=== PATIENT | female | born 1955 | race Caucasian/White ===

== ENCOUNTER 2017-01-07 10:17 | Inpatient (IN) | payer OTHER ==
[~2017-01-07] VITALS: Ht 156.2 cm; Wt 73.1 kg
[~2017-01-07 10:17] MED LIST: ALBU90AE INH; ATOR40TA78 PO; CHLO25TA PO; FLUT12AE2 INH; IPRA3AMP INH; LISI30TA4 PO; METF750T PO
[2017-01-07] MEDS ORDERED: SODIUM CHLORIDE 0.9% 1,000ML IVBOLUS ONE (11:00)
[2017-01-07] MEDS ORDERED: SODIUM CHLORIDE FLUSH 10ML SYR IVF ONE (11:00)
[2017-01-07] MEDS ORDERED: ONDANSETRON 2MG/ML, 2ML IVPush ONE (11:00)
[2017-01-07] MEDS ORDERED: ONDANSETRON 2MG/ML, 2ML ONE (11:11)
[2017-01-07] MEDS ORDERED: MORPHINE SULFATE 4 MG/ML, 1ML ONE ×2 (11:11→13:08)
[2017-01-07] MEDS: MORPHINE SULFATE 4 MG/ML, 1ML IVPush PRN ×2 (11:14→13:12)
[2017-01-07 11:29] LABS: BLOOD UREA NITROGEN 21 mg/dL (7-18)
[2017-01-07 11:33] LABS: ASPARTATE AMINO TRANSFERASE 14 U/L (15-37)
[2017-01-07 11:59] LABS: HEMATOCRIT 42.6 % (34.6-47.8); HEMOGLOBIN 14.2 g/dL (11.7-16.4); WHITE BLOOD COUNT 19.7 x10^3/uL (3.4-10)
[2017-01-07] MEDS ORDERED: SODIUM CHLORIDE 0.9% 1,000 ML IV ONE (12:42)
[2017-01-07] MEDS ORDERED: CEFTRIAXONE PMX 1GM/50ML 50 ML ONE (12:58)
[2017-01-07] MEDS ORDERED: METRONIDAZOLE PMX 500MG/100ML 100 ML IVPB ONE (13:00)
[2017-01-07] MEDS ORDERED: CEFTRIAXONE PMX 1GM/50ML 50 ML IVPB ONE (13:00)
[2017-01-07] MEDS: SODIUM CHLORIDE 0.9% 1,000 ML IV SCH ×2 (13:56→15:56)
[2017-01-07] MEDS ORDERED: POLYETHYLENE GLYCOL 17 GM PACKET PO PRN (14:00)
[2017-01-07] MEDS ORDERED: BISACODYL 10 MG SUPP PR PRN (14:00)
[2017-01-07] MEDS ORDERED: DOCUSATE 100 MG CAPSULE PO PRN (14:00)
[2017-01-07] MEDS ORDERED: ONDANSETRON 2MG/ML, 2ML IVPush PRN (14:00)
[2017-01-07] MEDS ORDERED: morphine SULFATE 10 MG/ML, 1ML IVPush PRN (14:00)
[2017-01-07] MEDS ORDERED: ONDANSETRON ODT 4 MG PO PRN (14:00)
[2017-01-07] MEDS ORDERED: FLUCONAZOLE 100 MG TABLET PO ONE (14:00)
[2017-01-07] MEDS ORDERED: hydrALAzine 20 MG/ML, 1ML IV PRN (14:00)
[2017-01-07] MEDS ORDERED: PHARMACY MAY ADJ FOR RENAL FX MC PRN (14:30)
[2017-01-07 14:32] VITALS: BP 121/87
[2017-01-07] MEDS: NICOTINE 14MG/24 HR PATCH.TD24 TD SCH (15:00)
[2017-01-07] MEDS ORDERED: ALBUTEROL/IPRATROPIUM 2.5MG/0.5MG, 3 ML ONE (15:10)
[2017-01-07] MEDS: HEPARIN 5,000 UNITS/ML, 1ML SQ SCH ×2 (15:57→23:40)
[2017-01-07] MEDS: LACTOBACILLUS CHEW TABLET PO SCH ×2 (15:58→21:41)
[2017-01-07] MEDS: INSULIN ASPART 100 UNITS/ML, PEN SQ-INSULIN SCH ×2 (16:00→21:00)
[2017-01-07] MEDS: METRONIDAZOLE PMX 500MG/100ML 100 ML IV SCH ×2 (16:28→22:34)
[2017-01-07] MEDS ORDERED: MAGNESIUM SULFATE PMX 2GM/50ML 50 ML IV ONE (18:30)
[2017-01-07] MEDS: HYDROcodone/APAP 5/325 TABLET PO PRN (19:36)
[2017-01-07 20:00] VITALS: BP 118/68
[2017-01-07] MEDS: ALBUTEROL/IPRATROPIUM 2.5MG/0.5MG, 3 ML NPPB SCH (20:00)
[2017-01-07] MEDS ORDERED: TEMPLATE NON-FORMULARY MED. (Fluticasone Propionate (Flovent Hfa 220 Mcg/Inh) 1 PUFF) INH SCH (21:00)
[2017-01-07] MEDS: FAMOTIDINE 20 MG/2 ML IVPush SCH (21:41)
[2017-01-07] MEDS: ATORVASTATIN 40 MG TABLET PO SCH (21:41)
[2017-01-08 02:00] VITALS: BP 121/73
[2017-01-08] MEDS: SODIUM CHLORIDE 0.9% 1,000 ML IV SCH ×2 (03:16→14:27)
[2017-01-08] MEDS: HYDROcodone/APAP 5/325 TABLET PO PRN ×2 (03:24→14:27)
[2017-01-08] MEDS: ALBUTEROL/IPRATROPIUM 2.5MG/0.5MG, 3 ML NPPB SCH ×3 (03:33→12:10)
[2017-01-08 05:26] LABS: PATH.CAST-FLAG NOT PRESENT; SPERM-FLAG NOT PRESENT; SRC-FLAG NOT PRESENT; XTAL-FLAG NOT PRESENT; YLC-FLAG NOT PRESENT
[2017-01-08 06:18] LABS: HEMATOCRIT 30.8 % (34.6-47.8); HEMOGLOBIN 10.1 g/dL (11.7-16.4); WHITE BLOOD COUNT 8.8 x10^3/uL (3.4-10)
[2017-01-08 06:29] LABS: BLOOD UREA NITROGEN 15 mg/dL (7-18)
[2017-01-08] MEDS: LACTOBACILLUS CHEW TABLET PO SCH ×4 (06:33→21:30)
[2017-01-08] MEDS: METRONIDAZOLE PMX 500MG/100ML 100 ML IV SCH ×3 (06:33→21:30)
[2017-01-08] MEDS: HEPARIN 5,000 UNITS/ML, 1ML SQ SCH ×3 (06:34→23:00)
[2017-01-08] MEDS: INSULIN ASPART 100 UNITS/ML, PEN SQ-INSULIN SCH ×4 (08:19→21:49)
[2017-01-08] MEDS: FAMOTIDINE 20 MG/2 ML IVPush SCH ×2 (08:19→21:31)
[2017-01-08] MEDS: LISINOPRIL 10 MG TABLET PO SCH (08:19)
[2017-01-08] MEDS ORDERED: FLUTICASONE FUROATE 200MCG/INH INH SCH (09:00)
[2017-01-08] MEDS ORDERED: CHLORTHALIDONE 25 MG TABLET PO SCH (09:00)
[2017-01-08 09:41] VITALS: BP 114/67
[2017-01-08] MEDS ORDERED: TEMPLATE NON-FORMULARY MED. (albuterol sulfate 1 PUFF) HOMEINH PRN (12:00)
[2017-01-08 14:00] VITALS: BP 120/73
[2017-01-08] MEDS: CEFTRIAXONE PMX 1GM/50ML 50 ML IV SCH (14:27)
[2017-01-08] MEDS ORDERED: ALBUTEROL/IPRATROPIUM 2.5MG/0.5MG, 3 ML NPPB PRN (15:00)
[2017-01-08] MEDS: NICOTINE 14MG/24 HR PATCH.TD24 TD SCH (15:00)
[2017-01-08] MEDS: DOCUSATE 100 MG CAPSULE PO SCH ×2 (15:24→21:30)
[2017-01-08 19:34] VITALS: BP 138/76
[2017-01-08] MEDS: ATORVASTATIN 40 MG TABLET PO SCH (21:30)
[2017-01-08] MEDS: [UNRECOGNIZED DRUG - OTHER] HOMEINH SCH (21:31)
[2017-01-09 01:33] VITALS: BP 134/80
[2017-01-09 05:13] LABS: HEMATOCRIT 31.8 % (34.6-47.8); HEMOGLOBIN 10.7 g/dL (11.7-16.4); WHITE BLOOD COUNT 9.2 x10^3/uL (3.4-10)
[2017-01-09 05:39] LABS: BLOOD UREA NITROGEN 10 mg/dL (7-18)
[2017-01-09] MEDS: SODIUM CHLORIDE 0.9% 1,000 ML IV SCH (06:13)
[2017-01-09] MEDS: METRONIDAZOLE PMX 500MG/100ML 100 ML IV SCH ×2 (06:13→14:00)
[2017-01-09] MEDS: LACTOBACILLUS CHEW TABLET PO SCH ×2 (06:13→09:55)
[2017-01-09] MEDS: HEPARIN 5,000 UNITS/ML, 1ML SQ SCH (06:13)
[2017-01-09] MEDS: HYDROcodone/APAP 5/325 TABLET PO PRN (06:24)
[2017-01-09] MEDS: INSULIN ASPART 100 UNITS/ML, PEN SQ-INSULIN SCH ×2 (07:00→12:01)
[2017-01-09 07:19] VITALS: BP 138/85
[2017-01-09] MEDS: [UNRECOGNIZED DRUG - OTHER] HOMEINH SCH (09:00)
[2017-01-09] MEDS: DOCUSATE 100 MG CAPSULE PO SCH (09:00)
[2017-01-09] MEDS: LISINOPRIL 10 MG TABLET PO SCH (09:55)
[2017-01-09] MEDS: FAMOTIDINE 20 MG/2 ML IVPush SCH (09:55)
[2017-01-09] MEDS ORDERED: LEVO500T47 PO (10:02)
[2017-01-09] MEDS ORDERED: ACID1TAB7 PO (10:02)
[2017-01-09] MEDS ORDERED: METR500T PO (10:02)
[2017-01-09] MEDS ORDERED: FLU VACC QS2017-18 (36MOS+) UP/PF 0.5 ML IM-VACC ONE (12:30)
[2017-01-09] MEDS: CEFTRIAXONE PMX 1GM/50ML 50 ML IV SCH (13:00)
[2017-01-09 13:57] VITALS: BP 134/81
== END 2017-01-09 15:00 | disposition home health service (06) | DRG 871 ==
LOC: ED 12:45 → EDIP 12:46 → ED 13:14 → 4EST 14:43 → DCLOUNGE 01-09 14:28
PROVIDERS: ADMIT Hospitalist; ATTEND Hospitalist
PROC: 0T9B70Z Drainage of Bladder with Drainage Device, Via Natural or Artificial Opening (ICD-10-PCS; principal; 2017-01-07)
DX: A41.9 Sepsis, unspecified organism (principal); N17.0 Acute kidney failure with tubular necrosis; E83.42 Hypomagnesemia; E87.1 Hypo-osmolality and hyponatremia; K57.32 Diverticulitis of large intestine without perforation or abscess without bleeding; B37.3 Candidiasis of vulva and vagina; D75.89 Other specified diseases of blood and blood-forming organs; E11.9 Type 2 diabetes mellitus without complications; E78.5 Hyperlipidemia, unspecified; G47.33 Obstructive sleep apnea (adult) (pediatric); I10 Essential (primary) hypertension; J44.9 Chronic obstructive pulmonary disease, unspecified; G43.909 Migraine, unspecified, not intractable, without status migrainosus; K59.00 Constipation, unspecified; F17.200 Nicotine dependence, unspecified, uncomplicated; Z71.6 Tobacco abuse counseling; Z80.9 Family history of malignant neoplasm, unspecified
CPT/HCPCS: 36415; 74177; 80048; 80053; 81001; 81003; 82962; 83605; 83690; 83735; 84100; 85025; 87046; 87086; 87324; 94640; 96361; 96374; 96375; 96376; J0696; J1644; J1815; J2405; J7620; Q0162; J3475; J7030; S0028

== ENCOUNTER 2017-01-16 21:07 | Inpatient (IN) | payer OTHER ==
[~2017-01-16] VITALS: Ht 154.9 cm; Wt 74.0 kg
[~2017-01-16 21:07] MED LIST changes: +ACID1TAB7 PO; +LEVO500T47 PO; +METR500T PO
[2017-01-16] MEDS ORDERED: methylPREDNISolone SOD SUCC 125 MG/2 ML ONE (21:49)
[2017-01-16] MEDS ORDERED: ONDANSETRON 2MG/ML, 2ML ONE (21:49)
[2017-01-16 21:55] LABS: HEMATOCRIT 40.4 % (34.6-47.8); HEMOGLOBIN 13.4 g/dL (11.7-16.4); WHITE BLOOD COUNT 7.4 x10^3/uL (3.4-10)
[2017-01-16] MEDS ORDERED: ALBUTEROL/IPRATROPIUM 2.5MG/0.5MG, 3 ML NPPB ONE (22:00)
[2017-01-16] MEDS ORDERED: SODIUM CHLORIDE 0.9% 1,000ML IVBOLUS ONE (22:00)
[2017-01-16] MEDS ORDERED: SODIUM CHLORIDE FLUSH 10ML SYR IVF ONE (22:00)
[2017-01-16] MEDS ORDERED: methylPREDNISolone SOD SUCC 125 MG/2 ML IVP ONE (22:00)
[2017-01-16] MEDS ORDERED: ONDANSETRON 2MG/ML, 2ML IVP ONE (22:00)
[2017-01-16 22:06] LABS: ASPARTATE AMINO TRANSFERASE 20 U/L (15-37); BLOOD UREA NITROGEN 19 mg/dL (7-18)
[2017-01-16 22:11] LABS: IS PT STATUS REG ER OR PRE ER? YES
[2017-01-16 22:42] LABS: PATH.CAST-FLAG NOT PRESENT; SPERM-FLAG NOT PRESENT; SRC-FLAG NOT PRESENT; XTAL-FLAG NOT PRESENT; YLC-FLAG NOT PRESENT
[2017-01-17] MEDS ORDERED: MAGNESIUM SULFATE PMX 2GM/50ML 50 ML IV ONE
[2017-01-17] MEDS: NICOTINE 14MG/24 HR PATCH.TD24 TD SCH
[2017-01-17 00:26] VITALS: BP 124/72
[2017-01-17] MEDS: NS + 20MEQ KCL 1,000 ML IV SCH ×3 (00:41→16:51)
[2017-01-17] MEDS: methylPREDNISolone SOD SUCC 125 MG/2 ML IVPush SCH ×2 (00:41→05:41)
[2017-01-17] MEDS: HEPARIN 5,000 UNITS/ML, 1ML SQ SCH ×3 (00:42→16:51)
[2017-01-17 06:00] LABS: HEMATOCRIT 36.5 % (34.6-47.8); HEMOGLOBIN 12.3 g/dL (11.7-16.4); WHITE BLOOD COUNT 4.4 x10^3/uL (3.4-10)
[2017-01-17 06:07] LABS: ASPARTATE AMINO TRANSFERASE 16 U/L (15-37); BLOOD UREA NITROGEN 17 mg/dL (7-18)
[2017-01-17 06:42] VITALS: BP 107/61
[2017-01-17] MEDS: ALBUTEROL/IPRATROPIUM 2.5MG/0.5MG, 3 ML NPPB SCH ×4 (06:51→20:25)
[2017-01-17] MEDS: metFORMIN 500 MG TABLET PO SCH ×4 (08:55→18:07)
[2017-01-17] MEDS: SENNA/DOCUSATE TABLET PO SCH (08:55)
[2017-01-17] MEDS: LISINOPRIL 10 MG TABLET PO SCH (09:00)
[2017-01-17] MEDS ORDERED: FLUTICASONE FUROATE 100MCG/INH INH SCH (09:00)
[2017-01-17] MEDS: FLUTICASONE FUROATE 200MCG/INH INH SCH (09:00)
[2017-01-17] MEDS: INSULIN ASPART 100 UNITS/ML, PEN SQ-INSULIN SCH ×5 (09:02→20:12)
[2017-01-17] MEDS: methylPREDNISolone SOD SUCC 40 MG/ML IVPush SCH ×2 (14:29→21:44)
[2017-01-17 14:38] VITALS: BP 120/71
[2017-01-17] MEDS ORDERED: ONDANSETRON 2MG/ML, 2ML IVPush PRN ×2 (16:00)
[2017-01-17] MEDS ORDERED: ACETAMINOPHEN 325 MG TABLET PO PRN ×2 (16:00)
[2017-01-17] MEDS ORDERED: POLYETHYLENE GLYCOL 17 GM PACKET PO PRN ×2 (16:00)
[2017-01-17] MEDS ORDERED: GUAIFENESIN/DM 200-20MG, 10ML UDC PO PRN ×2 (16:00)
[2017-01-17] MEDS ORDERED: BISACODYL 10 MG SUPP PR PRN ×2 (16:00)
[2017-01-17 19:17] VITALS: BP 132/76
[2017-01-17] MEDS: ATORVASTATIN 40 MG TABLET PO SCH ×2 (20:11)
[2017-01-18] MEDS: NICOTINE 14MG/24 HR PATCH.TD24 TD SCH
[2017-01-18 00:41] VITALS: BP 162/81
[2017-01-18] MEDS: HEPARIN 5,000 UNITS/ML, 1ML SQ SCH ×3 (00:46→16:00)
[2017-01-18] MEDS: NS + 20MEQ KCL 1,000 ML IV SCH ×3 (00:46→16:00)
[2017-01-18] MEDS: methylPREDNISolone SOD SUCC 40 MG/ML IVPush SCH ×2 (05:41→14:16)
[2017-01-18 05:54] LABS: HEMATOCRIT 35.1 % (34.6-47.8); HEMOGLOBIN 11.6 g/dL (11.7-16.4); WHITE BLOOD COUNT 14.6 x10^3/uL (3.4-10)
[2017-01-18 06:11] LABS: BLOOD UREA NITROGEN 21 mg/dL (7-18)
[2017-01-18 06:48] VITALS: BP 132/76
[2017-01-18] MEDS: ALBUTEROL/IPRATROPIUM 2.5MG/0.5MG, 3 ML NPPB SCH ×3 (06:52→14:51)
[2017-01-18] MEDS: SENNA/DOCUSATE TABLET PO SCH (08:27)
[2017-01-18] MEDS: FLUTICASONE FUROATE 200MCG/INH INH SCH (08:33)
[2017-01-18] MEDS: metFORMIN 500 MG TABLET PO SCH (08:40)
[2017-01-18] MEDS: LISINOPRIL 10 MG TABLET PO SCH (08:41)
[2017-01-18] MEDS: INSULIN ASPART 100 UNITS/ML, PEN SQ-INSULIN SCH ×2 (08:42→12:21)
[2017-01-18 15:15] VITALS: BP 128/69
== END 2017-01-18 17:13 | disposition home or self-care (01) | DRG 189 ==
LOC: ED 21:45 → EDIP 23:00 → 4WST 23:55
PROVIDERS: ADMIT Hospitalist; ATTEND Hospitalist
DX: J96.01 Acute respiratory failure with hypoxia (principal); E11.65 Type 2 diabetes mellitus with hyperglycemia; E86.0 Dehydration; E44.1 Mild protein-calorie malnutrition; E87.1 Hypo-osmolality and hyponatremia; J44.1 Chronic obstructive pulmonary disease with (acute) exacerbation; J98.11 Atelectasis; E78.5 Hyperlipidemia, unspecified; E87.6 Hypokalemia; F17.210 Nicotine dependence, cigarettes, uncomplicated; F41.9 Anxiety disorder, unspecified; I10 Essential (primary) hypertension; Z80.9 Family history of malignant neoplasm, unspecified; Z68.30 Body mass index [BMI] 30.0-30.9, adult
CPT/HCPCS: 36415; 71010; 80048; 80053; 81001; 82962; 83880; 84484; 85025; 87040; 87070; 87086; 87107; 87205; 93005; 94640; 96361; 96374; 96375; J1644; J2405; J3480; J7620; J2920; J2930; J3475; J7030

== ENCOUNTER 2017-01-25 20:53 | Inpatient (IN) | payer OTHER ==
[~2017-01-25] VITALS: Ht 154.9 cm; Wt 70.0 kg
[~2017-01-25 20:53] MED LIST changes: +ADENOSINE 6 MG/2 ML ONE; +PRED5TAB25 PO
[2017-01-25] MEDS ORDERED: ADENOSINE 6 MG/2 ML ONE (21:03)
[2017-01-25] MEDS ORDERED: methylPREDNISolone SOD SUCC 125 MG/2 ML ONE (21:07)
[2017-01-25] MEDS ORDERED: ONDANSETRON 2MG/ML, 2ML ONE (21:12)
[2017-01-25] MEDS ORDERED: methylPREDNISolone SOD SUCC 125 MG/2 ML IVP ONE (21:30)
[2017-01-25] MEDS ORDERED: ADENOSINE 6 MG/2 ML IVPush ONE ×3 (21:30)
[2017-01-25] MEDS ORDERED: DILTIAZEM 5 MG/ML, 5ML IVPush ONE (21:30)
[2017-01-25] MEDS ORDERED: SODIUM CHLORIDE 0.9% 1,000ML IVBOLUS ONE (21:30)
[2017-01-25] MEDS ORDERED: ONDANSETRON 2MG/ML, 2ML IVPush ONE (21:30)
[2017-01-25] MEDS ORDERED: ALBUTEROL/IPRATROPIUM 2.5MG/0.5MG, 3 ML ONE (21:31)
[2017-01-25 21:38] LABS: BLOOD UREA NITROGEN 27 mg/dL (7-18)
[2017-01-25] MEDS ORDERED: morphine SULFATE 10 MG/ML, 1ML ONE (21:38)
[2017-01-25 21:43] LABS: IS PT STATUS REG ER OR PRE ER? YES
[2017-01-25] MEDS ORDERED: DILTIAZEM 125 MG in SODIUM CHLORIDE 0.9% 100 ML IV PRN (22:00)
[2017-01-25 22:04] LABS: HEMATOCRIT 37.9 % (34.6-47.8); HEMOGLOBIN 12.3 g/dL (11.7-16.4); WHITE BLOOD COUNT 23.3 x10^3/uL (3.4-10)
[2017-01-25 22:05] LABS: DIFF TOTAL CELLS COUNTED 100 CELL DIFF
[2017-01-25 22:09] LABS: VERIFY COUNTS? YES
[2017-01-25] MEDS ORDERED: PRED5TAB PO (22:13)
[2017-01-25] MEDS ORDERED: ASPIRIN 325 MG TABLET PO STA (22:32)
[2017-01-25] MEDS ORDERED: SODIUM CHLORIDE 0.9% 1,000 ML IV ONE (22:43)
[2017-01-25] MEDS ORDERED: MORPHINE SULFATE 4 MG/ML, 1ML IVPush PRN (23:00)
[2017-01-25] MEDS ORDERED: ONDANSETRON 2MG/ML, 2ML IVPush PRN ×2 (23:00→23:30)
[2017-01-25] MEDS ORDERED: AZITHROMYCIN 500 MG in SODIUM CHLORIDE 0.9% 250 ML IV ONE (23:00)
[2017-01-25] MEDS ORDERED: ASPIRIN 325 MG TABLET ONE (23:13)
[2017-01-25] MEDS: AZITHROMYCIN 500 MG in SODIUM CHLORIDE 0.9% 250 ML IV SCH (23:20)
[2017-01-25] MEDS: LACTOBACILLUS CHEW TABLET PO SCH (23:30)
[2017-01-25] MEDS ORDERED: BISACODYL 10 MG SUPP PR PRN (23:30)
[2017-01-25] MEDS: metFORMIN 500 MG TABLET PO SCH (23:30)
[2017-01-25] MEDS ORDERED: ACETAMINOPHEN 325 MG TABLET PO PRN (23:30)
[2017-01-25] MEDS ORDERED: POLYETHYLENE GLYCOL 17 GM PACKET PO PRN (23:30)
[2017-01-25] MEDS ORDERED: MAGNESIUM SULFATE PMX 4GM/100M 100 ML IV ONE (23:30)
[2017-01-25 23:48] VITALS: BP 124/81
[2017-01-26] MEDS ORDERED: CEFTRIAXONE PMX 1GM/50ML 50 ML IV SCH
[2017-01-26] MEDS ORDERED: morphine SULFATE 10 MG/ML, 1ML ONE (00:04)
[2017-01-26] MEDS ORDERED: OMNIPAQUE 350 MG/ML, 100ML BOTTLE ONE (00:57)
[2017-01-26] MEDS: ATORVASTATIN 40 MG TABLET PO SCH ×2 (01:04→20:32)
[2017-01-26] MEDS: HEPARIN 5,000 UNITS/ML, 1ML SQ SCH ×3 (01:06→17:11)
[2017-01-26] MEDS: CEFTRIAXONE 1,000 MG in SODIUM CHLORIDE 0.9% 50 ML IVPB SCH (01:51)
[2017-01-26 02:03] VITALS: BP 103/70
[2017-01-26] MEDS: methylPREDNISolone SOD SUCC 125 MG/2 ML IVPush SCH ×4 (03:00→20:33)
[2017-01-26 03:26] LABS: HEMATOCRIT 34.6 % (34.6-47.8); HEMOGLOBIN 11.4 g/dL (11.7-16.4); WHITE BLOOD COUNT 22.6 x10^3/uL (3.4-10)
[2017-01-26 03:39] LABS: ASPARTATE AMINO TRANSFERASE 76 U/L (15-37); BLOOD UREA NITROGEN 26 mg/dL (7-18)
[2017-01-26 03:44] LABS: IS PT STATUS REG ER OR PRE ER? NO
[2017-01-26 03:49] LABS: DIFF TOTAL CELLS COUNTED 100 CELL DIFF
[2017-01-26 03:51] LABS: VERIFY COUNTS? YES
[2017-01-26] MEDS: ASPIRIN 325 MG TABLET EC PO SCH (05:12)
[2017-01-26] MEDS: LACTOBACILLUS CHEW TABLET PO SCH ×4 (05:18→20:32)
[2017-01-26] MEDS: SENNA/DOCUSATE TABLET PO SCH (09:00)
[2017-01-26] MEDS: metFORMIN 500 MG TABLET PO SCH ×2 (09:17→20:33)
[2017-01-26] MEDS: LISINOPRIL 10 MG TABLET PO SCH (09:18)
[2017-01-26] MEDS: CHLORTHALIDONE 25 MG TABLET PO SCH (09:18)
[2017-01-26] MEDS: FLUTICASONE FUROATE 200MCG/INH INH SCH (09:20)
[2017-01-26 09:23] VITALS: BP 127/77
[2017-01-26 09:26] LABS: IS PT STATUS REG ER OR PRE ER? NO
[2017-01-26] MEDS: ALBUTEROL/IPRATROPIUM 2.5MG/0.5MG, 3 ML NPPB PRN ×2 (14:40→19:25)
[2017-01-26 14:41] VITALS: BP 127/78
[2017-01-26] MEDS: INSULIN ASPART 100 UNITS/ML, PEN SQ-INSULIN SCH ×2 (17:13→20:31)
[2017-01-26 19:01] VITALS: BP 118/74
[2017-01-26 20:27] VITALS: BP 135/91
[2017-01-26] MEDS: AZITHROMYCIN 500 MG in SODIUM CHLORIDE 0.9% 250 ML IV SCH (23:58)
[2017-01-27] MEDS: HEPARIN 5,000 UNITS/ML, 1ML SQ SCH ×3 (01:20→17:24)
[2017-01-27] MEDS: CEFTRIAXONE 1,000 MG in SODIUM CHLORIDE 0.9% 50 ML IVPB SCH (01:20)
[2017-01-27 01:28] VITALS: BP 120/78
[2017-01-27] MEDS: methylPREDNISolone SOD SUCC 125 MG/2 ML IVPush SCH ×2 (03:14→10:06)
[2017-01-27 05:05] LABS: HEMATOCRIT 35.5 % (34.6-47.8); WHITE BLOOD COUNT 22.5 x10^3/uL (3.4-10)
[2017-01-27 05:26] LABS: BLOOD UREA NITROGEN 26 mg/dL (7-18)
[2017-01-27] MEDS: ASPIRIN 325 MG TABLET EC PO SCH (05:27)
[2017-01-27] MEDS: LACTOBACILLUS CHEW TABLET PO SCH ×4 (05:27→21:29)
[2017-01-27] MEDS: ALBUTEROL/IPRATROPIUM 2.5MG/0.5MG, 3 ML NPPB PRN (07:30)
[2017-01-27] MEDS ORDERED: REGADENOSON 0.4 MG/5 ML SYRINGE ONE (08:37)
[2017-01-27] MEDS: SENNA/DOCUSATE TABLET PO SCH (09:00)
[2017-01-27] MEDS: FLUTICASONE FUROATE 200MCG/INH INH SCH (09:00)
[2017-01-27 09:41] VITALS: BP 119/74
[2017-01-27] MEDS: CHLORTHALIDONE 25 MG TABLET PO SCH (10:05)
[2017-01-27] MEDS: metFORMIN 500 MG TABLET PO SCH ×2 (10:05→21:29)
[2017-01-27] MEDS: LISINOPRIL 10 MG TABLET PO SCH (10:05)
[2017-01-27] MEDS: INSULIN ASPART 100 UNITS/ML, PEN SQ-INSULIN SCH ×4 (10:06→21:31)
[2017-01-27 13:28] VITALS: BP 120/73
[2017-01-27] MEDS ORDERED: DOXYCYCLINE 100 MG in DEXTROSE 5% 250 ML IV SCH (13:30)
[2017-01-27] MEDS: DOXYCYCLINE 100MG TABLET PO SCH (13:51)
[2017-01-27 17:22] VITALS: BP 131/76
[2017-01-27] MEDS: METOPROLOL TARTRATE 25 MG TABLET PO SCH (17:23)
[2017-01-27 19:24] VITALS: BP 131/76
[2017-01-27] MEDS: ATORVASTATIN 40 MG TABLET PO SCH (21:30)
[2017-01-27] MEDS: CEFTRIAXONE 1,000 MG in DEXTROSE 5% 50 ML IVPB SCH (23:28)
[2017-01-28] MEDS: DOXYCYCLINE 100MG TABLET PO SCH ×2 (02:06→14:19)
[2017-01-28] MEDS: HEPARIN 5,000 UNITS/ML, 1ML SQ SCH ×3 (02:07→17:54)
[2017-01-28 03:44] VITALS: BP 158/88
[2017-01-28] MEDS: ALBUTEROL/IPRATROPIUM 2.5MG/0.5MG, 3 ML NPPB PRN (03:53)
[2017-01-28 05:44] LABS: HEMATOCRIT 38.1 % (34.6-47.8); HEMOGLOBIN 12.6 g/dL (11.7-16.4); WHITE BLOOD COUNT 29.5 x10^3/uL (3.4-10)
[2017-01-28 05:54] LABS: BLOOD UREA NITROGEN 33 mg/dL (7-18)
[2017-01-28 06:05] VITALS: BP 158/88
[2017-01-28] MEDS: ASPIRIN 325 MG TABLET EC PO SCH (06:08)
[2017-01-28] MEDS: LACTOBACILLUS CHEW TABLET PO SCH ×4 (06:08→20:04)
[2017-01-28] MEDS: METOPROLOL TARTRATE 25 MG TABLET PO SCH ×2 (06:08→17:54)
[2017-01-28 06:31] VITALS: BP 138/85
[2017-01-28] MEDS: INSULIN ASPART 100 UNITS/ML, PEN SQ-INSULIN SCH ×4 (07:00→20:05)
[2017-01-28] MEDS: LISINOPRIL 10 MG TABLET PO SCH (08:58)
[2017-01-28] MEDS: CHLORTHALIDONE 25 MG TABLET PO SCH (08:58)
[2017-01-28] MEDS: metFORMIN 500 MG TABLET PO SCH ×2 (08:59→20:04)
[2017-01-28] MEDS: SENNA/DOCUSATE TABLET PO SCH (08:59)
[2017-01-28] MEDS: FLUTICASONE FUROATE 200MCG/INH INH SCH (08:59)
[2017-01-28] MEDS ORDERED: LISINOPRIL 5 MG TABLET PO SCH (09:00)
[2017-01-28 12:11] VITALS: BP 144/90
[2017-01-28 17:53] VITALS: BP 148/80
[2017-01-28 19:09] VITALS: BP 121/71
[2017-01-28] MEDS ORDERED: MAGNESIUM SULFATE PMX 2GM/50ML 50 ML IV ONE (19:30)
[2017-01-28] MEDS: ATORVASTATIN 40 MG TABLET PO SCH (20:04)
[2017-01-28] MEDS: CEFTRIAXONE 1,000 MG in DEXTROSE 5% 50 ML IVPB SCH (20:04)
[2017-01-29 01:23] VITALS: BP 153/92
[2017-01-29] MEDS: HEPARIN 5,000 UNITS/ML, 1ML SQ SCH ×3 (01:39→17:09)
[2017-01-29] MEDS: DOXYCYCLINE 100MG TABLET PO SCH ×2 (01:39→16:03)
[2017-01-29 04:39] LABS: HEMATOCRIT 40.5 % (34.6-47.8); HEMOGLOBIN 13.4 g/dL (11.7-16.4); WHITE BLOOD COUNT 27.1 x10^3/uL (3.4-10)
[2017-01-29 04:55] LABS: BLOOD UREA NITROGEN 32 mg/dL (7-18)
[2017-01-29 05:06] LABS: DIFF TOTAL CELLS COUNTED 100 CELL DIFF
[2017-01-29 05:07] LABS: VERIFY COUNTS? YES
[2017-01-29] MEDS: ASPIRIN 325 MG TABLET EC PO SCH (06:29)
[2017-01-29] MEDS: LACTOBACILLUS CHEW TABLET PO SCH ×4 (06:29→21:30)
[2017-01-29 06:30] VITALS: BP 168/95
[2017-01-29] MEDS: METOPROLOL TARTRATE 25 MG TABLET PO SCH ×2 (06:30→17:09)
[2017-01-29] MEDS: INSULIN ASPART 100 UNITS/ML, PEN SQ-INSULIN SCH ×4 (07:00→20:54)
[2017-01-29 07:34] VITALS: BP 152/90
[2017-01-29] MEDS: SENNA/DOCUSATE TABLET PO SCH (08:09)
[2017-01-29] MEDS: CHLORTHALIDONE 25 MG TABLET PO SCH (08:55)
[2017-01-29] MEDS: metFORMIN 500 MG TABLET PO SCH ×2 (08:55→21:29)
[2017-01-29] MEDS: LISINOPRIL 10 MG TABLET PO SCH (08:55)
[2017-01-29] MEDS: FLUTICASONE FUROATE 200MCG/INH INH SCH (08:56)
[2017-01-29 14:30] VITALS: BP 117/81
[2017-01-29 18:50] VITALS: BP 107/69
[2017-01-29] MEDS: CEFTRIAXONE 1,000 MG in DEXTROSE 5% 50 ML IVPB SCH (21:30)
[2017-01-29] MEDS: ATORVASTATIN 40 MG TABLET PO SCH (21:30)
[2017-01-30 00:20] VITALS: BP 137/82
[2017-01-30] MEDS: DOXYCYCLINE 100MG TABLET PO SCH ×2 (01:58→17:07)
[2017-01-30] MEDS: HEPARIN 5,000 UNITS/ML, 1ML SQ SCH ×2 (01:58→09:14)
[2017-01-30 04:56] LABS: HEMOGLOBIN 14.2 g/dL (11.7-16.4); WHITE BLOOD COUNT 26.5 x10^3/uL (3.4-10)
[2017-01-30 05:06] LABS: BLOOD UREA NITROGEN 37 mg/dL (7-18)
[2017-01-30] MEDS: METOPROLOL TARTRATE 25 MG TABLET PO SCH (06:09)
[2017-01-30] MEDS: ASPIRIN 325 MG TABLET EC PO SCH (06:09)
[2017-01-30] MEDS: LACTOBACILLUS CHEW TABLET PO SCH ×2 (06:09→12:19)
[2017-01-30] MEDS: INSULIN ASPART 100 UNITS/ML, PEN SQ-INSULIN SCH ×2 (07:00→12:19)
[2017-01-30 07:49] VITALS: BP 134/87
[2017-01-30] MEDS: SENNA/DOCUSATE TABLET PO SCH (08:15)
[2017-01-30] MEDS: FLUTICASONE FUROATE 200MCG/INH INH SCH (09:00)
[2017-01-30] MEDS: CHLORTHALIDONE 25 MG TABLET PO SCH (09:13)
[2017-01-30] MEDS: metFORMIN 500 MG TABLET PO SCH (09:13)
[2017-01-30] MEDS: LISINOPRIL 10 MG TABLET PO SCH (09:14)
[2017-01-30] MEDS ORDERED: DOXY100T PO (10:06)
[2017-01-30] MEDS ORDERED: PRED20TA PO (10:06)
[2017-01-30] MEDS ORDERED: CEFD300C37 PO (10:06)
[2017-01-30] MEDS ORDERED: METO25TA35 PO (10:06)
[2017-01-30] MEDS ORDERED: FLU VACC QS2017-18 (36MOS+) UP/PF 0.5 ML IM-VACC ONE (12:00)
[2017-01-30 13:32] VITALS: BP 126/85
== END 2017-01-30 17:37 | disposition home health service (06) | DRG 871 ==
LOC: ED 21:00 → EDIP 22:43 → 5SO 23:38
PROVIDERS: ADMIT Hospitalist; ATTEND Hospitalist
PROC: 5A2204Z Restoration of Cardiac Rhythm, Single (ICD-10-PCS; principal; 2017-01-25)
DX: A41.9 Sepsis, unspecified organism (principal); J96.01 Acute respiratory failure with hypoxia; I21.4 Non-ST elevation (NSTEMI) myocardial infarction; E44.0 Moderate protein-calorie malnutrition; E83.42 Hypomagnesemia; E11.9 Type 2 diabetes mellitus without complications; D47.3 Essential (hemorrhagic) thrombocythemia; I50.20 Unspecified systolic (congestive) heart failure; E87.1 Hypo-osmolality and hyponatremia; I47.1 Supraventricular tachycardia; J44.1 Chronic obstructive pulmonary disease with (acute) exacerbation; I11.0 Hypertensive heart disease with heart failure; D72.829 Elevated white blood cell count, unspecified; E78.5 Hyperlipidemia, unspecified; F17.210 Nicotine dependence, cigarettes, uncomplicated; F41.9 Anxiety disorder, unspecified; G43.909 Migraine, unspecified, not intractable, without status migrainosus; R91.1 Solitary pulmonary nodule; Z79.899 Other long term (current) drug therapy; Z98.51 Tubal ligation status; Z80.9 Family history of malignant neoplasm, unspecified; Z23 Encounter for immunization; Z82.5 Family history of asthma and other chronic lower respiratory diseases; Z88.5 Allergy status to narcotic agent; Z88.6 Allergy status to analgesic agent; Z68.29 Body mass index [BMI] 29.0-29.9, adult; Z71.3 Dietary counseling and surveillance
CPT/HCPCS: 36415; 71010; 71275; 78452; 80048; 80053; 82040; 82947; 82962; 83036; 83735; 83880; 84439; 84443; 84484; 85025; 87070; 87107; 87186; 87205; 90686; 93005; 93017; 93306; 94640; 96361; 96365; 96375; J0153; J0456; J0696; J1644; J1815; J2405; J2785; J7620; Q9967; A9502; C9898; J2930; J3475; J7030; J7050; J7512

== ENCOUNTER 2018-05-25 09:52 | Emergency (ER) | payer OTHER ==
[~2018-05-25] VITALS: Ht 156.2 cm; Wt 69.1 kg
[~2018-05-25 09:52] MED LIST changes: -ADENOSINE 6 MG/2 ML ONE; +ALBU18HF INH; +CEFD300C37 PO; +DOXY100T PO; -IPRA3AMP INH; +IPRA3AMP30 INH; +METO25TA35 PO; +PRED20TA PO; +PRED5TAB PO
--- NOTE | 2018-05-25 10:32 | NUR ---
PT TO ROOM AT THIS TIME
[2018-05-25] MEDS ORDERED: ONDANSETRON 2MG/ML, 2ML ONE ×2 (11:17→15:17)
[2018-05-25] MEDS ORDERED: HYDROmorphone 1 MG/ML, 1ML AMP ONE (11:18)
--- NOTE | 2018-05-25 11:23 | NUR ---
PT REFUSES DILAUDID AND ZOFRAN AT THIS TIME, STATES PAIN AND NAUSEA IS NOT BAD AT THIS TIME.
[2018-05-25] MEDS ORDERED: HYDROmorphone 2 MG/ML, 1ML IVPush PRN (11:30)
[2018-05-25] MEDS ORDERED: ONDANSETRON 2MG/ML, 2ML IVPush ONE (11:30)
[2018-05-25] MEDS ORDERED: SODIUM CHLORIDE FLUSH 10ML SYR IVF ONE (11:30)
[2018-05-25 11:44] LABS: BASOPHILS # (AUTO) 0.03 x10^3/uL (0-0.1); BASOPHILS % (AUTO) 0 % (0-1); EOSINOPHILS # (AUTO) 0.11 x10^3/uL (0-0.4); EOSINOPHILS % (AUTO) 1 % (1-7); LYMPHOCYTES # (AUTO) 3.59 x10^3/uL (1-3.4); LYMPHOCYTES % (AUTO) 26 % (22-44); MD NO; MEAN CORPUSCULAR HEMOGLOBIN 29.5 pg (27.0-34.8); MEAN CORPUSCULAR VOLUME 89.5 fL (80-100); MEAN PLATELET VOLUME 7.7 fL (7.4-10.4); MONOCYTES # (AUTO) 0.69 x10^3/uL (0.2-0.8); MONOCYTES % (AUTO) 5 % (2-9); NEUTROPHILS # (AUTO) 9.22 x10^3/uL (1.8-6.8); NEUTROPHILS % (AUTO) 68 % (42-75); PLATELET COUNT 378 x10^3/uL (130-400); RED BLOOD COUNT 3.95 x10^6/uL (3.82-5.3)
--- NOTE | 2018-05-25 11:50 | NUR ---
ct pending: lab results
[2018-05-25 11:58] LABS: ALANINE AMINOTRANSFERASE 17 U/L (12-78); ALBUMIN 3.2 g/dL (3.4-5.0); ANION GAP 7 mmol/L (5-15); CALCIUM 9.1 mg/dL (8.5-10.1); CHLORIDE 102 mmol/L (98-107); CREATININE 1.28 mg/dL (0.55-1.02)
[2018-05-25 12:02] LABS: ALKALINE PHOSPHATASE 103 U/L (45-117); BILIRUBIN,TOTAL 0.4 mg/dL (0.2-1.0); TOTAL PROTEIN 7.5 g/dL (6.4-8.2); TROPONIN I < 0.015 ng/mL (0.000-0.045)
--- NOTE | 2018-05-25 12:09 | NUR ---
PT TO CT, VSS, NO COMPLAINS
[2018-05-25 12:14] LABS: MICROSCOPIC NOT IND
[2018-05-25 12:21] LABS: CULTURE INDICATED? NO
[2018-05-25] MEDS ORDERED: OMNIPAQUE 350 MG/ML, 100ML BOTTLE ONE (12:24)
--- NOTE | 2018-05-25 12:50 | NUR ---
BEDSIDE REPORT FROM KRYSTYNA CHO. PT RESTING IN BED. ALL RESULTS BACK, PT UP FOR RECHECK. PT DENIED NEED OF PAIN MEDS AT THIS TIME. FAMILY AT BEDSIDE. WILL CONTINUE TO MONITOR. PT ON 2L O2 PER N/C.
[2018-05-25] MEDS ORDERED: METRONIDAZOLE PMX 500MG/100ML 100 ML IV ONE (13:00)
[2018-05-25] MEDS ORDERED: CEFOTETAN PMX 1GM/50ML 50 ML IV ONE (13:00)
[2018-05-25] MEDS ORDERED: CEFOTETAN PMX 1GM/50ML 50 ML ONE (13:30)
[2018-05-25] MEDS ORDERED: METRONIDAZOLE PMX 500MG/100ML 100 ML ONE (13:30)
[2018-05-25] MEDS ORDERED: HYDROcodone/APAP 5/325 TABLET ONE (15:18)
[2018-05-25] MEDS ORDERED: HYDROcodone/APAP 5/325 TABLET PO ONE (15:30)
[2018-05-25 15:47] VITALS: BP 143/65
== END 2018-05-25 16:03 | disposition home or self-care (01) ==
LOC: ED 15:27
DX: K57.92 Diverticulitis of intestine, part unspecified, without perforation or abscess without bleeding (principal); G43.909 Migraine, unspecified, not intractable, without status migrainosus; I25.2 Old myocardial infarction; J44.9 Chronic obstructive pulmonary disease, unspecified; E11.9 Type 2 diabetes mellitus without complications; E78.5 Hyperlipidemia, unspecified; Z88.5 Allergy status to narcotic agent; Z88.8 Allergy status to other drugs, medicaments and biological substances
CPT/HCPCS: 36415; 71045; 74177; 80053; 81003; 83605; 83690; 84484; 85025; 87040; 96365; 96367; 96375; 99284; J2405; J3490; Q9967

== ENCOUNTER 2018-07-01 18:24 | Emergency (ER) | payer OTHER ==
[~2018-07-01] VITALS: Ht 154.9 cm; Wt 69.8 kg
--- NOTE | 2018-07-01 18:52 | NUR ---
PT IN GOWN, CALL LIGHT WITHIN REACH. FAMILY AT BS.
[2018-07-01 19:06] LABS: MEAN CORPUSCULAR HEMOGLOBIN 30.1 pg (27.0-34.8); MEAN CORPUSCULAR HGB CONC 33.8 g/dL (32.4-35.8); MEAN CORPUSCULAR VOLUME 89.1 fL (80-100); MEAN PLATELET VOLUME 7.3 fL (7.4-10.4); PLATELET COUNT 387 x10^3/uL (130-400); RED BLOOD COUNT 3.96 x10^6/uL (3.82-5.3); RED CELL DISTRIBUTION WIDTH 13.8 % (9.6-15.2)
[2018-07-01 19:07] LABS: INTERNATIONAL NORMALIZED RATIO 0.89 (0.93-1.1); PROTHROMBIN TIME 9.4 Seconds (9.6-11.5)
[2018-07-01 19:09] LABS: ALBUMIN 3.9 g/dL (3.4-5.0); ANION GAP 9 mmol/L (5-15); CALCIUM 8.6 mg/dL (8.5-10.1); CHLORIDE 104 mmol/L (98-107)
[2018-07-01 19:15] LABS: CREATININE 1.32 mg/dL (0.55-1.02)
--- NOTE | 2018-07-01 19:20 | NUR ---
PT C/O LEFT MIDDLE FINGER PAIN THAT STARTED ABOUT 3 WEEKS AGO WHEN SHE FELT A POP WHEN SHE WAS CLOSING HER HAND. PT ALSO CONCERNED ABOUT BUMP ON HER LEFT FOREARM. PT CONCERNED SHE HAS A CLOT. PT DENIES CP OR SOB.
[2018-07-01 19:30] LABS: BASOPHILS # (AUTO) 0.08 x10^3/uL (0-0.1); BASOPHILS % (AUTO) 1 % (0-1); EOSINOPHILS # (AUTO) 0.55 x10^3/uL (0-0.4); EOSINOPHILS % (AUTO) 4 % (1-7); LYMPHOCYTES # (AUTO) 5.14 x10^3/uL (1-3.4); LYMPHOCYTES % (AUTO) 40 % (22-44); MONOCYTES # (AUTO) 0.67 x10^3/uL (0.2-0.8); MONOCYTES % (AUTO) 5 % (2-9); NEUTROPHILS # (AUTO) 6.27 x10^3/uL (1.8-6.8); NEUTROPHILS % (AUTO) 49 % (42-75)
[2018-07-01 19:31] LABS: MD SCAN
--- NOTE | 2018-07-01 19:45 | NUR ---
PT TO US.
[2018-07-01 21:01] VITALS: BP 124/62
== END 2018-07-01 21:02 | disposition home or self-care (01) ==
LOC: ED 20:45
DX: I80.8 Phlebitis and thrombophlebitis of other sites (principal); I82.629 Acute embolism and thrombosis of deep veins of unspecified upper extremity; E11.9 Type 2 diabetes mellitus without complications; I11.9 Hypertensive heart disease without heart failure; I25.2 Old myocardial infarction; E78.5 Hyperlipidemia, unspecified; J44.9 Chronic obstructive pulmonary disease, unspecified; F17.200 Nicotine dependence, unspecified, uncomplicated
CPT/HCPCS: 36415; 80048; 82040; 83880; 85025; 85610; 99284